=== PATIENT | male | born 2000 | race Two or more races ===

== ENCOUNTER 2025-01-31 09:50 | Emergency (ER) | payer SELFPAY ==
[2025-01-31 10:22] VITALS: BP 136/77; PULSE 86; RESP 18; TEMP 36.8; O2SAT 98
--- NOTE | 2025-01-31 10:24 | XR_ITS ---
Examination: Foot, right, 3 views Technique: AP, oblique, lateral views foot, 3 views Date and time of exam: January 31, 2025 1030 hours INDICATIONS: Injury to the foot today, foot pain FINDINGS: No acute fracture No dislocation No foreign body IMPRESSION: No acute fracture
--- NOTE | 2025-01-31 10:49 | PD.EDLOWEX ---
Lower Extremity Injury RME/HPI General Chief Complaint: Extremity Injury, Lower Stated Complaint: DROPPED SOMETHING ON R) FOOT; PAIN FOOT/LEG X 1DAY Time Seen by Provider: 01/31/25 09:53 Arrival date/time: 01/31/25 09:50 24-year-old male presents to the emergency department today for complaint of right great toe pain patient reports that he dropped a heavy piece of metal on his right foot injuring his right great toe Limitations: no limitations Related Data Previous Rx's ?Medication ?Instructions ?Recorded ibuprofen 600 mg tablet 600 mg PO Q6H #30 tabs 01/31/25 Allergies Allergy/AdvReac Type Severity Reaction Status Date / Time No Known Allergies Allergy Verified 01/31/25 09:54 Review of Systems Review of Systems Systems Reviewed: All systems reviewed, normal except as documented Constitutional Constitutional: Reports system reviewed and no additional complaints, except as documented, Denies fever(s) and Denies headache(s) Eyes Eyes: Reports system reviewed and no additional complaints, except as documented and Denies blurry vision ENT Ears, Nose, Mouth, and Throat: Reports system reviewed and no additional complaints, except as documented, Denies headache(s), Denies nasal congestion and Denies nasal discharge Cardiovascular Cardiovascular: Reports system reviewed and no additional complaints, except as documented, Denies chest pain and Denies dyspnea Respiratory Respiratory: Reports system reviewed and no additional complaints, except as documented, Denies chest congestion, Denies cough and Denies dyspnea Gastrointestinal Gastrointestinal: Reports system reviewed and no additional complaints, except as documented and Denies abdominal pain Musculoskeletal Musculoskeletal: Reports system reviewed and no additional complaints, except as documented, Reports abnormal gait, Reports arthralgias, Denies deformity and Denies joint swelling Integumentary/Breasts Skin/Breast: Reports system reviewed and no additional complaints, except as documented and Denies rash Neurologic Neurologic: Reports system reviewed and no additional complaints, except as documented, Reports as per HPI, Reports abnormal gait and Denies headache(s) Past Medical History Past Medical History NEUROLOGIC: Negative Neurological Disorders CARDIAC: Negative Cardiac Disorders or Congestive Heart Failure RESPIRATORY: Negative Chronic Obstructive Pulmonary Disease (COPD) or Asthma GENITOURINARY: Negative Renal Disease ENDOCRINE: Negative Diabetes Mellitus Type 1 or Diabetes Mellitus Type 2 HEMATOLOGIC: Negative Sickle Cell Disease Social History SMOKING STATUS: Current every day smoker ED Exam General Limitations: Present no limitations General appearance: Present alert and in no apparent distress Head Head exam: Present atraumatic Eye Eye exam: Present normal appearance, PERRL and EOMI ENT ENT exam: Present normal exam, normal oropharynx and mucous membranes moist Neck Neck exam: Present normal inspection, full ROM and trachea midline Chest Chest inspection: Present normal inspection and symmetric chest wall rise Respiratory Respiratory exam: Present normal lung sounds bilaterally Cardiovascular Cardiovascular exam: Present regular rate, normal rhythm and normal heart sounds Abdominal Exam Abdominal exam: Present soft and normal bowel sounds Extremities Exam Extremities exam: Present full ROM, tenderness and normal capillary refill Back Exam Back exam: Present normal inspection and full ROM Neurological Exam Neurological exam: Present alert, oriented X3 and CN II-XII intact Psychiatric Psychiatric exam: Present normal affect and normal mood Skin Skin exam: Present warm, dry and other (Right great toe injury) Course Quality Measures none Orders Category Date Time Status XR foot comp RT min 3V Stat Exams 01/31/25 10:24 Completed Ibuprofen Tab [Motrin Tab] Med 01/31/25 10:24 Discontinued 800 mg PO X1 ONE TET,DIP/PERT AC (Adult)-Tdap [Boostrix Adult (Tdap) Med 01/31/25 10:24 Discontinued Vacc] 0.5 ml IMI .ONCE ONE Vital Signs Vital signs: Vital Signs Temperature 98.2 F 01/31/25 10:22 Pulse Rate 86 01/31/25 10:22 Respiratory Rate 18 01/31/25 10:22 Blood Pressure 136/77 H 01/31/25 10:22 Pulse Oximetry (%) 98 01/31/25 10:22 Oxygen Delivery Method Room Air 01/31/25 10:22 O2 saturation 98% on room air within normal limits Extremity Injury, Lower MDM Narrative MDM Narrative:: 24-year-old male presents to the emergency department today for complaint of right great toe pain patient reports that he dropped a heavy piece of metal on his right foot injuring his right great toe On exam patient has partial nail avulsion of right great toe I do suspect patient will lose his nail X-ray obtained no acute fracture dislocation noted Patient given a Tdap and ibuprofen given Patient discharged home in no distress to follow-up with primary care doctor in the next 24 to 48 hours and for any worsening symptoms to return to the ER immediately Patient data External records reviewed:: [facility] previous records Clinical information provided by:: patient Social determinants that could affect healthcare access:: none Patient has the following chronic illnesses:: None How is presenting disease/condition affected by chronic disease/condition?: no chronic disease Evaluation data The following diagnostics were reviewed and interpreted by me:: radiology exam(s) Lab and/or radiology exams considered but not ordered:: Radiology obtain Interpretation Summary: Reviewed by me Medications / Prescriptions Medications or Prescriptions considered but not ordered:: Given Medication administrations:: Medication Administration History Discontinued Medications Diphtheria/Tetanus/Acell Pertussis (Diphth,Pertuss(Acell),Tet Vac 0.5 Ml Syr- Adult) 0.5 ml IMi .ONCE ONE Stop: 01/31/25 10:25 Last Admin: 01/31/25 11:12 Dose: 0.5 ml Documented By: OTILIA Ibuprofen (Ibuprofen Tab 400 Mg Tablet) 800 mg PO X1 ONE Stop: 01/31/25 10:25 Last Admin: 01/31/25 11:12 Dose: 800 mg Documented By: OTILIA Given Consultations Consultation(s) initiated? (list below): No Diagnosis Extremity Injury, Lower Differential Diagnosis: other (Foot fracture, toe fracture) Most likely diagnosis given after review of the tests above:: Contusion right great toe, partial nail avulsion Admission Indicated Admission indicated?: not indicated Admission Request Was there a request for admission?: No Disposition Plan Disposition Plan: Discharge Discharge Attestation Discharge Attestation: The patient and all family members were given an opportunity to ask questions and understood the discharge instructions. Discharge instructions specifically effects, indications for sooner follow up or return to the emergency department, and the expected course of current diagnosis. Patient condition: Stable Discharge Plan Plan Patient Disposition: HOME (Self Care) Disposition Comment: Stable Prescriptions/Referrals Prescriptions/Med Rec: New ibuprofen 600 mg tablet 600 mg PO Q6H Qty: 30 0RF Referrals: Michi Chavez MD [Primary Care Provider] - 02/01/25 Problem List Clinical Impression: Pain of right great toe, Avulsion of nail Patient/Caregiver Discharge Instructions Education Materials: RICE Additional Instructions: Please follow up with your primary care doctor in the next 24-48hrs for any worsening symptoms return here immediately Print Language: Urdu Stand Alone Forms: Ursula Award Info., Work/School Release, Patient Portal Info Letter PA/JAVIER Supervising Physician PA/JAVIER Supervising Physician: Dr. ray
[2025-01-31] MEDS: DIPHTH,PERTUSS(ACELL),TET VAC 0.5 ML SYR- ADULT IMi (11:12)
[2025-01-31] MEDS: IBUPROFEN TAB 400 MG TABLET 800 MG PO (11:12)
== END 2025-01-31 11:27 | disposition home or self-care (01) ==
PROVIDERS: Emergency Provider Family Medicine; PCP Family Medicine
DX: S91.201A Unspecified open wound of right great toe with damage to nail, initial encounter (principal); W20.8XXA Other cause of strike by thrown, projected or falling object, initial encounter; Z23 Encounter for immunization
CPT/HCPCS: 73630; 90471; 90715; 99283; A9270

== ENCOUNTER 2025-09-07 17:32 | Emergency (ER) | payer SELFPAY ==
[2025-09-07 17:33] VITALS: BMI 28.8
[2025-09-07 18:00] VITALS: BP 126/74; PULSE 80; RESP 18; TEMP 36.9; O2SAT 95; BMI 28.9
--- NOTE | 2025-09-07 18:02 | XR_ITS ---
Examination: Clavicle 2 views, right Technique: Clavicle AP, angled up AP, 2 views Exam date and time: September 07, 2025, 1828 hours INDICATIONS: Lifting injury today to the shoulder, shoulder pain. FINDINGS: No acute clavicle fracture No AC joint aspiration IMPRESSION: No acute fracture
--- NOTE | 2025-09-07 18:05 | PD.EDUPEX ---
Upper Extremity Injury RME/HPI General Chief Complaint: Extremity Injury, Upper Stated Complaint: L SHOULDER INJURY Time Seen by Provider: 09/07/25 18:02 Arrival date/time: 09/07/25 17:32 25-year-old male patient came in for evaluation regarding pain to the right AC joint, incident happened earlier today while lifting something, patient fell last night resulting to pain, described as dull ache severity moderate. Denies any limitation of shoulder joints. Denies any other injury. No medication was taken prior to ER visit. Related Data Previous Rx's ?Medication ?Instructions ?Recorded ibuprofen 600 mg tablet 600 mg PO Q6H #30 tabs 01/31/25 ibuprofen 800 mg tablet 800 mg PO TID PRN pain #30 tabs 09/07/25 Allergies Allergy/AdvReac Type Severity Reaction Status Date / Time No Known Allergies Allergy Verified 09/07/25 17:33 Review of Systems Review of Systems Narrative Review of Systems: Review of system reviewed and within normal limits except mentioned in HPI ED Exam Narrative Physical exam: VITAL SIGNS: Reviewed. GENERAL APPEARANCE: Alert and interactive, follows commands, no acute distress, HEAD AND FACE: Non-traumatic. ENT: PERRL, pink conjunctivitis, eyelid no trauma, Mucous membrane moist. NECK: Supple, nontender, no nuchal rigidity. CHEST: No tenderness, no crepitus, no paradoxical movement, no retractions. LUNGS: Clear, well ventilated, symmetric, no rales, no wheezing, no ronchi, no stridor, good breath sounds bilaterally. HEART: Regular rate, regular rhythm, no murmur, no gallops. ABDOMEN: Soft, positive bowel sounds, nondistended, no guarding, nontender, no rebound, no masses, RECTAL: Deferred. GENITAL: Deferred. NEUROLOGICAL: Gross motor function intact sensory function intact, Appropriate for age. MUSCULOSKELETAL: low back nontender, full range of motion. EXTREMITIES: Prominence of right AC joint, full range of motion. SKIN: Color pink, dry, no rash, no lacerations, no abrasions, no contusions. LYMPHATICS: Deferred. Course Quality Measures none Orders Category Date Time Status sling [Splint / Immobilizer] STAT Care 09/07/25 18:02 Active XR clavicle RT Stat Exams 09/07/25 18:02 Completed Vital Signs Vital signs: Vital Signs Temperature 98.5 F 09/07/25 18:00 Pulse Rate 80 09/07/25 18:00 Respiratory Rate 18 09/07/25 18:00 Blood Pressure 126/74 09/07/25 18:00 Pulse Oximetry (%) 95 09/07/25 18:00 Oxygen Delivery Method Room Air 09/07/25 18:00 Extremity Injury MDM Narrative MDM Narrative:: 25-year-old male patient came in for evaluation regarding pain to the right AC joint, incident happened earlier today while lifting something, patient fell last night resulting to pain, described as dull ache severity moderate. Denies any limitation of shoulder joints. Denies any other injury. No medication was taken prior to ER visit. X-ray of the right shoulder came back unremarkable. Results discussed with the patient. Patient was placed in an arm sling stable for charged home Patient data External records reviewed:: None Clinical information provided by:: patient Social determinants that could affect healthcare access:: none Patient has the following chronic illnesses:: None How is presenting disease/condition affected by chronic disease/condition?: no chronic disease Evaluation data The following diagnostics were reviewed and interpreted by me:: radiology exam(s) Lab and/or radiology exams considered but not ordered:: None Interpretation Summary: See MDM Medications / Prescriptions Medications or Prescriptions considered but not ordered:: None Medication administrations:: None Consultations Consultation(s) initiated? (list below): No Diagnosis Upper Extremity Injury Differential Diagnosis: dislocation of shoulder and fracture of humerus Most likely diagnosis given after review of the tests above:: Right shoulder pain Admission Indicated Admission indicated?: not indicated Admission Request Was there a request for admission?: No Disposition Plan Disposition Plan: Discharge Discharge Attestation Discharge Attestation: The patient was given an opportunity to ask questions and understood the discharge instructions. Discharge instructions specifically effects, indications for sooner follow up or return to the emergency department, and the expected course of current diagnosis. Patient condition: Stable Discharge Plan Plan Patient Disposition: HOME (Self Care) Discharge Disposition comment: Stable Prescriptions/Referrals Prescriptions/Med Rec: New ibuprofen 800 mg tablet 800 mg PO TID PRN (Reason: pain) Qty: 30 0RF No Action ibuprofen 600 mg tablet 600 mg PO Q6H Qty: 30 0RF Referrals: Michi Chavez MD [Primary Care Provider, Family Practice] - In 1 week Problem List Clinical Impression: Acute pain of right shoulder Patient/Caregiver Discharge Instructions Discharge Activity: back to school once clear Education Materials: Understanding the Pain Response Additional Instructions: Thank you for the opportunity for serving you today. You are stable for discharged . You are advised to: Follow-up with your PCP in 1 to 2 days Return to ED for worsening of symptoms Increase oral fluids Take medication as prescribed Wear your arm sling for the next 2 weeks as needed Print Language: [place] Korean Stand Alone Forms: Ursula Award Info., Patient Portal Info Letter PA/JAVIER Supervising Physician NICO/JAVIER Supervising Physician: MD Elizabet
[2025-09-07 20:47] VITALS: RESP 16
== END 2025-09-07 20:48 | disposition home or self-care (01) ==
PROVIDERS: Emergency Provider Emergency Medicine; PCP Family Medicine
DX: S49.91XA Unspecified injury of right shoulder and upper arm, initial encounter (principal); X50.9XXA Other and unspecified overexertion or strenuous movements or postures, initial encounter; W19.XXXA Unspecified fall, initial encounter
CPT/HCPCS: 73000; 99282; A4565